=== PATIENT | female | born 2005 | race African-American/Black ===

== ENCOUNTER 2025-02-25 19:51 | Emergency (ER) | payer SELFPAY ==
[2025-02-25] MEDS ORDERED: METHYLPREDNISOLONE 125 MG INJ ONE (20:15)
[2025-02-25] MEDS ORDERED: DIPHENHYDRAMINE 12.5MG/5ML LIQ ONE (20:16)
[2025-02-25] MEDS ORDERED: ONDANSETRON 4 MG/2 ML VIAL ONE (20:16)
[2025-02-25] MEDS ORDERED: NA CHLORIDE 0.9% 1,000 ML ONE (20:16)
[2025-02-25] MEDS ORDERED: DIPHENHYDRAMINE 50 MG/ML VIAL ONE (20:19)
--- NOTE | 2025-02-25 20:43 | ER ---
Nurse's Notes [facility] Name: Madelyn Brito Age: 19 yrs Sex: Female : 2005 Arrival Date: 02/25/2025 Time: 19:51 Bed 19 Private MD: Diagnosis: Allergic reaction, nonanaphylactic Presentation: 02/25 20:02 Chief complaint: EMS states: patient at restaurant eating a new food, lips felt like kj2 they were swelling, heart rate 130-150 with EMS. Coronavirus screen: Client denies travel out of the [place] in the last 14 days. Ebola Screen: No symptoms or risks identified at this time. Initial Sepsis Screen: Does the patient meet any 2 criteria? No. Patient's initial sepsis screen is negative. Does the patient have a suspected source of infection? No. Patient's initial sepsis screen is negative. Risk Assessment: Do you want to hurt yourself or someone else? Patient reports no desire to harm self or others. Onset of symptoms was February 25, 2025. 20:02 Method Of Arrival: EMS: [facility] kj2 20:02 Acuity: FLOR 3 kj2 Triage Assessment: 20:10 General: Appears in no apparent distress. Behavior is calm, cooperative. Pain: Denies kj2 pain. Cardiovascular: Patient's skin is warm and dry. Historical: - Allergies: 20:04 No Known Allergies; kj2 - Immunization history:: Adult Immunizations unknown. - Infectious Disease History:: Denies. - Social history:: Smoking status: unknown. Screenin:10 [facility] ED Fall Risk Assessment (Adult) History of falling in the last 3 months, kj2 including since admission No falls in past 3 months (0 pts) Confusion or Disorientation No (0 pts) Intoxicated or Sedated No (0 pts) Impaired Gait No (0 pts) Mobility Assist Device Used No (0 pt) Altered Elimination No (0 pt) Score/Fall Risk Level 0 - 2 = Low Risk Maintained a safe environment, Hourly rounding (assess needs \T\ fall precautionary measures) done. Abuse screen: Denies threats or abuse. Denies injuries from another. Nutritional screening: No deficits noted. Tuberculosis screening: No symptoms or risk factors identified. Assessment: 20:04 General: see triage assessment. kj2 20:05 Pain: Denies pain. Pain does not radiate. Pain began. kj2 20:41 Reassessment: Patient appears in no apparent distress at this time. kj2 Vital Signs: 20:02 BP 139 / 82; Pulse 116; Resp 20; Temp 98.1; Pulse Ox 100% on R/A; Weight 97.52 kg; kj2 Height 5 ft. 7 in. ; 20:41 BP 122 / 90; Pulse 89; Resp 18; Pulse Ox 96% ; kj2 20:02 Body Mass Index 33.67 (97.52 kg, 170.18 cm) kj2 ED Course: 19:53 Patient arrived in ED. sp3 19:53 Ada Shaffer MD is Attending Physician. sp3 20:01 Urmila Mitchell RN is Primary Nurse. kj2 20:04 Triage completed. kj2 20:10 No provider procedures requiring assistance completed. Patient maintains SpO2 kj2 saturation greater than 95% on room air. 20:10 Patient has correct armband on for positive identification. Bed in low position. Call kj2 light in reach. Adult w/ patient. Provided Education on: call light. Client placed on continuous cardiac and pulse oximetry monitoring. NIBP monitoring applied. 20:10 Arm band placed on Patient placed. kj2 20:15 Inserted saline lock: 20 gauge in left antecubital area, using aseptic technique. Blood kj2 collected. Flushed with 10 mL NS. 20:46 IV discontinued, intact, bleeding controlled, No redness/swelling at site. Pressure kj2 dressing applied. Administered Medications: 20:46 Discontinued: ns 0.9% 1000 ml IV at 1000 ml once; to be given as a bolus over 60 minuteskj2 20:35 Drug: NS 0.9% IV 1000 ml IV at 1000 ml once; to be given as a bolus over 60 minutes kj2 Route: IV; Rate: 1000 ml; Site: left antecubital; 20:47 Follow up: IV Status: Completed infusion; IV Intake: 100ml kj2 20:36 Drug: MethylPrednisoLONE IVP 125 mg IVP once Route: IVP; Site: left antecubital; kj2 20:45 Follow up: Response: No adverse reaction kj2 20:36 Drug: Ondansetron IVP 4 mg IVP once; over 2 minutes Route: IVP; Site: left antecubital; kj2 20:45 Follow up: Response: No adverse reaction kj2 20:36 Drug: diphenhydrAMINE IVP 12.5 mg IVP once Route: IVP; Site: left antecubital; kj2 20:45 Follow up: Response: No adverse reaction kj2 Medication: 20:43 VIS not applicable for this client. kj2 Intake: 20:47 IV: 100ml; Total: 100ml. kj2 Outcome: 20:43 Discharge ordered by . vel 20:44 Discharged to home ambulatory, with friend, kj2 20:44 Condition: stable 20:44 Discharge instructions given to patient, Instructed on discharge instructions, follow up and referral plans. Demonstrated understanding of instructions, follow-up care, 20:57 Patient left the ED. kj2 Signatures: Ada Shaffer MD MD sp3 Urmila Mitchell, RN RN kj2
--- NOTE | 2025-02-25 20:43 | EDPHYS ---
Physician Documentation [facility] Name: Madelyn Brito Age: 19 yrs Sex: Female : 2005 Arrival Date: 02/25/2025 Time: 19:51 Bed 19 Private MD: ED Physician Ada Shaffer HPI: 02/25 19:55 This 19 yrs old Female presents to ER via Unassigned with complaints of allergic sp3 reaction. 19:55 19-year-old female with no significant past medical history no known allergies now sp3 presents to the ED with chief complaint swollen lip after eating a new sauce at local restaurant. Patient noticed it about half-way through her sandwich. EMS was activated who arrived to find slight swelling and lip and heart rate in the 130s. Patient in no acute distress at any time and no labored breathing or intraoral swelling. No intervention by EMS except transport. ROS otherwise negative. Patient denies headache, chest pain, shortness of breath, abdominal pain, vomiting or diarrhea or any other symptoms. She does endorse nausea.. Historical: - Allergies: 20:04 No Known Allergies; kj2 - Immunization history:: Adult Immunizations unknown. - Infectious Disease History:: Denies. - Social history:: Smoking status: unknown. ROS: 19:57 Constitutional: Negative for fever, chills, and weight loss, Eyes: Negative for injury, sp3 pain, redness, and discharge, ENT: Negative for injury, pain, and discharge, Neck: Negative for injury, pain, and swelling, Cardiovascular: Negative for chest pain, palpitations, and edema, Respiratory: Negative for shortness of breath, cough, wheezing, and pleuritic chest pain, Abdomen/GI: Negative for abdominal pain, nausea, vomiting, diarrhea, and constipation, Back: Negative for injury and pain, MS/Extremity: Negative for injury and deformity, Skin: Negative for injury, rash, and discoloration, Neuro: Negative for headache, weakness, numbness, tingling, and seizure, Psych: Negative for depression, anxiety, suicide ideation, homicidal ideation, and hallucinations, Endocrine: Negative for neck swelling, polydipsia, polyuria, polyphagia, and marked weight changes, Hematologic/Lymphatic: Negative for swollen nodes, abnormal bleeding, and unusual bruising, 19:57 All other systems are negative, Exam: 19:57 Constitutional: This is a well developed, well nourished patient who is awake, alert, sp3 and in no acute distress. Eyes: Pupils equal round and reactive to light, extra-ocular motions intact. Lids and lashes normal. Conjunctiva and sclera are non-icteric and not injected. Cornea within normal limits. Periorbital areas with no swelling, redness, or edema. ENT: Nares patent. No nasal discharge, no septal abnormalities noted. External auditory canals are clear. Oropharynx with no redness, swelling, or masses, exudates, or evidence of obstruction, uvula midline. Mucous membranes moist. Neck: Trachea midline, no thyromegaly or masses palpated, and no cervical lymphadenopathy. Supple, full range of motion without nuchal rigidity, or vertebral point tenderness. No Meningismus. Chest/axilla: Normal chest wall appearance and motion. Nontender with no deformity. No lesions are appreciated. Respiratory: Lungs have equal breath sounds bilaterally, clear to auscultation and percussion. No rales, rhonchi or wheezes noted. No increased work of breathing, no retractions or nasal flaring. Abdomen/GI: Soft, non-tender, with normal bowel sounds. No distension or tympany. No guarding or rebound. No evidence of tenderness throughout. Back: No spinal tenderness. No costovertebral tenderness. Full range of motion. Skin: Warm, dry with normal turgor. Normal color with no rashes, no lesions, and no evidence of cellulitis. MS/ Extremity: Pulses equal, no cyanosis. Neurovascular intact. Full, normal range of motion. Neuro: Awake and alert, GCS 15, oriented to person, place, time, and situation. Cranial nerves II-XII grossly intact. Motor strength 5/5 in all extremities. Sensory grossly intact. Cerebellar exam normal. Normal gait. Psych: Awake, alert, with orientation to person, place and time. Behavior, mood, and affect are within normal limits. 19:57 Head/face: Very mild swelling to the upper lip particular on the right side.. 19:57 Cardiovascular: Patient tachycardic in the 120s resting in no acute distress, Vital Signs: 20:02 BP 139 / 82; Pulse 116; Resp 20; Temp 98.1; Pulse Ox 100% on R/A; Weight 97.52 kg; kj2 Height 5 ft. 7 in. ; 20:41 BP 122 / 90; Pulse 89; Resp 18; Pulse Ox 96% ; kj2 20:02 Body Mass Index 33.67 (97.52 kg, 170.18 cm) kj2 MDM: 19:53 Medical Screening Exam initiated sp3 19:58 Data reviewed: vital signs, nurses notes. ED course: 19-year-old female with probable sp3 allergic reaction. Clinically I do not believe patient has angioedema or other process. Will treat with Solu-Medrol, Benadryl, IV fluids and ondansetron. No labs indicated. We will reevaluate and as long as heart rate is down and patient has same or better symptoms, we will safely discharge her home.. 20:42 ED course: Heart rate now 87 patient resting comfortably. No worsening of symptoms and sp3 lip swelling is actually improved. Patient is back to normal.. 02/25 19:54 Order name: IV Saline Lock; Complete Time: 20:36 sp3 Administered Medications: 20:46 Discontinued: ns 0.9% 1000 ml IV at 1000 ml once; to be given as a bolus over 60 minuteskj2 20:35 Drug: NS 0.9% IV 1000 ml IV at 1000 ml once; to be given as a bolus over 60 minutes kj2 Route: IV; Rate: 1000 ml; Site: left antecubital; 20:47 Follow up: IV Status: Completed infusion; IV Intake: 100ml kj2 20:36 Drug: MethylPrednisoLONE IVP 125 mg IVP once Route: IVP; Site: left antecubital; kj2 20:45 Follow up: Response: No adverse reaction kj2 20:36 Drug: Ondansetron IVP 4 mg IVP once; over 2 minutes Route: IVP; Site: left antecubital; kj2 20:45 Follow up: Response: No adverse reaction kj2 20:36 Drug: diphenhydrAMINE IVP 12.5 mg IVP once Route: IVP; Site: left antecubital; kj2 20:45 Follow up: Response: No adverse reaction kj2 Disposition Summary: 02/25/25 20:43 Discharge Ordered Notes: Location: Home sp3 Condition: Stable sp3 Diagnosis - Allergic reaction, nonanaphylactic sp3 Followup: sp3 - With: Private Physician - When: Upon discharge from the Emergency Department - Reason: Continuance of care Discharge Instructions: - Discharge Summary Sheet sp3 - Food Allergy sp3 Forms: - Medication Reconciliation Form sp3 - Antibiotic Education sp3 - Prescription Opioid Use sp3 - Patient Portal Instructions sp3 - Leadership Thank You Letter sp3 Prescriptions: - Prednisone 20 mg Oral Tablet - take 2 tablets ORAL route once daily for 5 days; 10 tablet; Refills: 0, Product sp3 Selection Permitted Signatures: Ada Shaffer MD MD sp3 Urmila Mitchell RN RN kj2
[2025-02-25 21:23] VITALS: TEMP 98.1
[2025-02-25 21:28] VITALS: BP 122/90; O2SAT 96
== END 2025-02-25 20:57 | disposition home or self-care (01) ==
LOC: ER 19:51
DX: R22.0 Localized swelling, mass and lump, head (principal); R11.0 Nausea
CPT/HCPCS: 96374; 96375; 99284; J1200; J2405; J2919; J7030; Q0163